=== PATIENT | female | born 1980 ===

== ENCOUNTER 2023-07-10 09:34 | Outpatient (AMB) | payer OTHER, SELFPAY ==
--- NOTE | 2023-07-10 09:38 | A.OFFVIS_ITS ---
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 She was having palpitations and according to her she underwent Holter monitor recently that showed PVCs. However, we do not have the actual doses of the Holter monitor itself. She does not have any known cardiac problems like coronary disease, myocardial infarction or cardiomyopathy. 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 Along with the palpitations, she also feels some shortness of breath with activity. She has been started on beta-blockers and after that, improved palpitations. Not very clear about family history as she states she does not know her father. She has not aware of any issues in her mother. [facility] Surgical History (Updated 07/10/23 @ 09:48 by Gerda Perry) Hx of abdominoplasty Hx of breast reduction, elective Family History (Updated 07/10/23 @ 09:43 by Gerda Perry) Mother No problems noted. Social History (Updated 07/10/23 @ 09:43 by Gerda Perry) Alcohol intake: never Patient Tobacco Use Status: Never used Tobacco Review of Systems Const Denies chills, Denies daytime sleepiness, Denies fatigue, Denies fever(s), Denies frequent falls, Denies night sweats, Denies snoring, Denies weakness, Denies weight gain and Denies weight loss Eyes Denies loss of vision ENT Denies dizziness and Denies hearing loss Card Denies chest pain, Denies chest pain with activity, Denies syncope, Denies rapid heart rate, Denies edema, Denies claudication, Denies leg edema, Denies lightheadedness, Denies palpitations, Denies dyspnea, Denies dyspnea on exertion and Denies orthopnea Resp Denies cough, Denies excessive phlegm production, Denies dyspnea, Denies dyspnea on exertion, Denies snoring and Denies wheezing GI Denies abdominal pain, Denies hematochezia, Denies change in bowel habits, Denies change in stool character, Denies heartburn, Denies nausea and Denies vomiting Denies hematuria, Denies urinary frequency and Denies dysuria Musc Denies arthralgias, Denies muscle weakness, Denies numbness and Denies tingling Skin/Breast Denies nail changes and Denies rash Neuro Denies Abnormal speech present, Denies dizziness, Denies syncope, Denies frequent falls, Denies loss of vision, Denies memory loss, Denies numbness, Denies tingling and Denies weakness Psych Denies depression and Denies memory loss Endo Denies fatigue and Denies palpitations Aller/Immun Denies wheezing Physical Exam Vital Signs: Last Vital Signs Pulse 71 07/10/23 09:41 BP 118/76 07/10/23 09:41 BMI result Body Mass Index 33.3 Const General: comfortable and no acute distress Orientation/consciousness: patient oriented x3 HEENT Other: Unremarkable Head: Yes normal to inspection Neck Neck: Yes normal visual inspection Chest Chest palpation & inspection: normal inspection of the chest Resp Auscultation: clear to auscultation bilaterally Cardio Palpation: normal PMI Heart sounds: S1 normal heart sound present, S2 normal heart sound present, no gallops, no murmurs and no rubs GI Palpation (GI): Soft to palpation Back/Spine/Pelvis Other: unremarkable Skin General skin exam: no rashes or lesions noted Neuro General: patient oriented x3 Speech: No Abnormal speech present Extrem General: Yes normal to inspection Psych Mental Status: mental status grossly normal Office Procedures EKG Details: EKG with sinus rhythm at 71/Min; nonspecific T-wave changes in the anterolateral leads as well as inferior leads. [id number], Complete Assessment & Plan Assessment & Plan (1) PVC (premature ventricular contraction): Code(s): I49.3 - Ventricular premature depolarization Plan 12 lead EKG shows nonspecific ST-T changes. Per PCP note/patient, PVCs seen on Holter but we need to get the actual report including strips. Need to get an echocardiogram to evaluate for any cardiomyopathy. As she feels better with the beta-blockers, okay to continue for now. Follow-up after the above. Orders: Orders CA echo transthoracic complete Today I49.3 - Ventricular premature depolarization Coding Level of Care Code New Pt Level 4 (06460) Diagnoses PVC (premature ventricular contraction) I49.3 CPT Codes EKG - CPT: 36615-[id number], Complete ([id number])
[2023-07-10 09:41] VITALS: BP 118/76; PULSE 71; BMI 33.3
== END 2023-07-10 10:03 | disposition home or self-care (01) ==
PROVIDERS: PCP Physician Assistant Medical; Visit Provider Internal Medicine
DX: I49.3 Ventricular premature depolarization (principal)
CPT/HCPCS: 93010; 99204

== ENCOUNTER → 2023-07-10 09:34 | Outpatient (BNVA) | payer OTHER, SELFPAY | PROVIDERS: PCP Physician Assistant Medical; Visit Provider Internal Medicine | DX: I49.3 Ventricular premature depolarization (principal) | CPT/HCPCS: 93005 ==

== ENCOUNTER → 2023-07-26 14:51 | Outpatient (REF) | payer OTHER, SELFPAY ==
--- NOTE | 2023-07-26 14:54 | CA_ITS ---
Transthoracic Echocardiogram Patient (Last, First, Middle): Donna Tafoya, Gender: Female Date of : 1980 Age: 43 Procedure Date: 07/26/2023 Procedure Type: Transthoracic Echocardiogram Location: OP Height: 162.56 cm Weight: 86.64 kg BSA: 1.92 m2 Heart Rate: 66 bpm BP: 105 / 65 mmHg Green Building Design Specialist: MADHAVI Referring MD: Franki Clemons MD Symptoms: I49.3 - Ventricular premature depolarization Study Quality: Adequate ECG Rhythm: Sinus Conclusions: - The left ventricular systolic function is normal. The calculated ejection fraction is 70% by biplane method. - No obvious valvular pathology seen on this study. Findings Left Ventricle Normal left ventricular cavity size. The left ventricular systolic function is normal. The calculated ejection fraction is 70% by biplane method. There is no evidence of regional wall motion abnormalities. Diastolic function is normal for age. There is mild septal asymmetric hypertrophy. LV peak GLS 21.7%. Right Ventricle Normal right ventricular cavity size and systolic function. Atria Both atria are normal in size. Aortic Valve There is a normal trileaflet aortic valve. There is no aortic valve stenosis. There is no aortic valve regurgitation. Mitral Valve The mitral valve appears normal. There is trace mitral valve regurgitation. There is no mitral valve stenosis. Pulmonic Valve The pulmonic valve is likely normal. Tricuspid Valve Normal tricuspid valve structure. There is no tricuspid valve regurgitation. Tricuspid regurgitation envelope is inadequate for calculation of right ventricular systolic pressure. Great Vessels The asc aorta is normal in size. Venous The inferior vena cava is normal in size and collapses greater than 50% with inspiration. Pericardium/Pleural There is no evidence of pericardial effusion. Prior Study Comparison No prior study available for comparison. Recommendations, Care & Conclusions No obvious valvular pathology seen on this study. Measurements 2D Linear Measurements IVSd: 1.10 0.6-0.9/0.6-1.0 cm LVIDd: 4.53 3.9-5.3/4.2-5.9 cm LVIDd Index: 2.36 2.4-3.2/2.2-3.1 cm/m2 LVIDs: 2.74 2.0-3.6 cm LVPWd: 1.02 0.7-1.1 cm LA Diam: 3.30 2.7-3.8/3.0-4.0 cm LAIDs Index: 1.72 1.5-2.3 cm/m2 LV Mass: 209.16 67-162/88-224 g LV Mass Index: 108.94 43-95/49-115 g/m2 LVOT Diam: 2.20 3.0+(-)1.3 cm 2D Systolic Function EF 4C: 71.40 >55% EF 2C: 71.70 >55% EF BiP: 70.20 >55% Mitral Valve MV Pk E: 0.80 MV PK A: 0.65 MV Decel Time: 179.00 E/A: 1.20 E'Lateral: 14.30 E'Medial: 9.79 E/E' Med: 8.10 E/E' Lat: 5.60 PHT: 52.00 MVA PHT: 4.23 Decel Crawford: 4.46 Aortic Valve AoV Pk Lowell: 1.15 AoV Mn Lowell: 0.79 AoV VTI: 0.24 AoV Pk Grad: 5.00 Aov Mn Grad: 3.00 JAYY Cont.VTI: 3.56 LVOT LVOT Pk Lowell: 1.10 LVOT Mn [place]ell: 0.70 LVOT VTI: 0.22 LVOT Pk Grad: 5.00 LVOT Mn Grad: 2.00 LVOT Diam: 2.20 LVOT Area: 3.80 Diastolic Function MV Pk E: 0.80 MV Pk A: 0.65 E/A: 1.20 E'Medial: 9.79 E/E' Med: 8.10 E' Laterial: 14.30 E/E' Lat: 5.60 Right Ventricle TAPSE (mm): 25.20 TVS' Lowell: 12.70 Tricuspid Valve RA Press: 3.00 Great Vessels Aorta Sinus of Valsalva: 3.40 2.0-3.5 cm Ao Asc: 2.90 2.1-3.4 cm Pulmonary Valve PV Pk Lowell: 0.99 Peak PV Grad: 4.00 Updated in Other Vendor System with Status of Final Franki Clemons MD electronically signed on 07/28/2023 10:38:38 AM with status of Final
== END ==
LOC: HO.CARD 14:51
PROVIDERS: PCP Physician Assistant Medical; Visit Provider Internal Medicine
DX: I49.3 Ventricular premature depolarization (principal)
CPT/HCPCS: 93306; 93356

== ENCOUNTER → 2023-07-26 14:54 | Outpatient (BNV) | payer OTHER, SELFPAY | PROVIDERS: PCP Physician Assistant Medical; Visit Provider Internal Medicine | DX: I49.3 Ventricular premature depolarization (principal) | CPT/HCPCS: 93306; 93356 ==

== ENCOUNTER 2023-08-23 13:10 | Outpatient (AMB) | payer OTHER, SELFPAY ==
[2023-08-23 13:14] VITALS: BP 118/82; PULSE 52; BMI 33.6
--- NOTE | 2023-08-23 13:14 | A.OFFVIS_ITS ---
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 She underwent a Holter monitor and echocardiogram and now presents for follow-up. Today she reports that she has been noticing less palpitations than previously reported. She will feel an occasional abnormal be in her chest causing her concern. She has not had any presyncope, syncope, falls. No concerning shortness of breath, PND, orthopnea or edema. No chest discomfort at rest or with activity. 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 [facility] Surgical History Hx of abdominoplasty Hx of breast reduction, elective Family History Mother No problems noted. Social History Alcohol intake: never Patient Tobacco Use Status: Never used Tobacco Review of Systems Const All systems reviewed & are unremarkable except as noted in HPI and below ENT Denies dizziness Card Details: palpitations Denies chest pain, Denies chest pain at rest, Denies chest pain with activity, Denies rapid heart rate, Denies pedal edema, Denies edema, Denies leg edema, Denies lightheadedness, Denies palpitations, Denies dyspnea, Denies dyspnea on exertion and Denies orthopnea Resp Denies cough, Denies dyspnea and Denies dyspnea on exertion GI Denies hematochezia and Denies change in stool character Musc Denies abnormal gait, Reports limited range of motion, Reports muscle cramps, Denies muscle weakness, Denies numbness, Denies radiating pain into limb, Denies stiffness and Denies tingling Neuro Denies abnormal gait, Denies dizziness, Denies numbness and Denies tingling Endo Denies palpitations Physical Exam Vital Signs: Last Vital Signs Pulse 52 08/23/23 13:14 BP 118/82 08/23/23 13:14 BMI result Body Mass Index 33.6 Const General: cooperative, healthy appearing, comfortable and no acute distress Orientation/consciousness: patient oriented x3 Neck Neck: Yes normal visual inspection and Yes no JVD Resp Effort & Inspection: normal respiratory effort Auscultation: clear to auscultation bilaterally, no crackles, no rales, no rhonchi and no wheezes Cardio Jugular venous distension: no JVD Rate: regular rate Rhythm: regular rhythm Heart sounds: S1 normal heart sound present, S2 normal heart sound present, no murmurs and no rubs Peripheral pulses: Peripheral pulses 2+ throughout Neuro General: patient oriented x3 Extrem General: Yes normal to inspection Psych Appearance: grossly normal Mental Status: mental status grossly normal Speech and movement: Normal speech and movement present Assessment & Plan Assessment & Plan (1) PVC (premature ventricular contraction): Code(s): I49.3 - Ventricular premature depolarization Category: Medical Plan: Reports of heart palpitation. Less in the last month. No presyncope, syncope. Holter monitor done 04/11/2023 for 3 days shows sinus rhythm with average heart rate 67, heart rate range 43 to 120, occasional PVCs, burden 0.2%. EKG done on 07/10/2023 shows sinus rhythm with nonspecific T-wave abnormality. Echocardiogram done 07/26/2023 shows EF greater than 70%, no wall motion abnormality and no valve abnormality. In the setting of normal EF her occasional PVCs are benign. Spent time reviewing the finding of PVCs. Offered reassurance that this finding is not harmful. Reviewed reduction in caffeinated beverages, stimulants. Maintain good hydration and adequate rest. Activity as tolerated. Cardiology follow-up as needed. Plan Time spent on chart review, documentation, intravenous assessment Coding Level of Care Code Est Pt Level 3 (21944) Diagnoses PVC (premature ventricular contraction) I49.3 Time Spent (min) 22
== END 2023-08-23 14:12 | disposition home or self-care (01) ==
PROVIDERS: PCP Physician Assistant Medical; Visit Provider Nurse Practitioner Family
DX: I49.3 Ventricular premature depolarization (principal)
CPT/HCPCS: 99213

== ENCOUNTER → 2023-08-23 13:10 | Outpatient (BNVA) | payer OTHER, SELFPAY | PROVIDERS: PCP Physician Assistant Medical; Visit Provider Nurse Practitioner Family ==